=== PATIENT | male | born 1980 | race Caucasian/White ===

== ENCOUNTER 2024-07-28 18:47 | Emergency (ER) | payer MEDICAID, OTHER ==
[~2024-07-28] VITALS: Ht 167.6 cm; Wt 82.0 kg
[2024-07-28 18:59] VITALS: O2SAT 96
[2024-07-28 20:45] VITALS: TEMP 36.8; O2SAT 96
[2024-07-28 21:20] LABS: CHLORIDE 98 mEq/L (98-107); SODIUM 134 mEq/L (136-145)
[2024-07-28 21:21] LABS: CALCIUM 9.5 mg/dL (8.7-10.4); CARBON DIOXIDE 23 mEq/L (21-32)
[2024-07-28 21:22] LABS: BASOPHILS % 0.5 % (0.0-2.0); DIFFERENTIAL COMMENT 0; EOSINOPHILS % 2.7 % (0.0-5.0); HEMATOCRIT. 21.5 % (42.0-52.0); LYMPHOCYTES % 9.5 % (20.0-50.0); MEAN CORPUSCULAR HEMOGLOBIN 28.1 pg (28.0-32.0); MEAN CORPUSCULAR HGB CONC 32.1 g/dL (31.0-37.0); MEAN CORPUSCULAR VOLUME 87.5 fL (80.0-94.0); MEAN PLATELET VOLUME 7.6 fl (7.4-10.4); MONOCYTES % 10.8 % (2.0-8.0); NEUTROPHILS % 76.5 % (40.0-76.0); PLATELET 132 x1000/uL (130-400); RED BLOOD CELL COUNT 2.46 mill/uL (4.7-6.1); RED CELL DISTRIBUTION WIDTH 16.2 % (11.6-14.6); WHITE BLOOD COUNT 5.2 x1000/uL (4.5-11.0)
[2024-07-28 21:24] VITALS: TEMP 98
[2024-07-28 21:26] LABS: GLUCOSE 97 mg/dL (70-105); UREA NITROGEN BLOOD 52 mg/dL (9-23)
[2024-07-28 21:28] LABS: ALANINE AMINOTRANSFERASE 9 IU/L (10-49); ALBUMIN 3.7 g/dL (3.2-4.8); ASPARTATE AMINOTRANSFERASE 26 IU/L (<34)
[2024-07-28 21:29] LABS: BILIRUBIN TOTAL < 0.2 mg/dL (0.1-1.0); PROTEIN TOTAL 6.3 g/dL (6.0-8.3)
[2024-07-28] MEDS: ACETAMINOPHEN 325MG TABLET PO ONE (21:29)
[2024-07-28 21:30] VITALS: BP 126/70; PULSE 99; RESP 18
[2024-07-28] MEDS: KETOROLAC 15MG/ML VIAL IV ONE (21:30)
[2024-07-28 21:34] LABS: INR 1.1; PROTHROMBIN TIME 11.6 sec (9.6-11.0)
[2024-07-28 21:55] LABS: HEMOGLOBIN. 6.9 g/dL (14.0-18.0)
[2024-07-28 22:08] LABS: POTASSIUM 6.2 mEq/L (3.5-5.1)
[2024-07-28 22:09] LABS: BILIRUBIN DIRECT < 0.1 mg/dL (<=3.0); CREATININE 11.7 mg/dL (0.6-1.3)
[2024-07-28 22:10] LABS: TROPONIN I HIGH SENSITIVITY 291 ng/L (3.0-53)
== END 2024-07-28 21:48 | disposition left against medical advice (07) ==
LOC: ER 18:47
DX: R10.32 Left lower quadrant pain (principal); I10 Essential (primary) hypertension; Z99.2 Dependence on renal dialysis; Z53.29 Procedure and treatment not carried out because of patient's decision for other reasons; Z91.041 Radiographic dye allergy status; Z88.0 Allergy status to penicillin
CPT/HCPCS: 99291; 74176; 96374; 80076; 80048; 83690; 85025; 85610; 84484; 36415; 93005; J1885